=== PATIENT | male | born 1990 | race African-American/Black ===

== ENCOUNTER 2016-05-15 21:24 | Emergency (ER) | payer SELFPAY ==
[~2016-05-15] VITALS: Ht 175.3 cm; Wt 74.8 kg
[2016-05-15] MEDS ORDERED: AMOX500T2 PO (22:57)
--- NOTE | 2016-05-15 22:57 | ED General ---
General Chief Complaint: Oral/Throat Problems Stated Complaint: THROAT PAIN Nursing Triage Note: PT TO ED 7 W/ C/O SORE THROAT X2-3 DAYS Nursing Sepsis Screen: No Definite Risk Source of Information: Patient Exam Limitations: No Limitations History of Present Illness Time Seen by Provider: 21:44 Initial Comments This 25-year-old young man presents to the emergency room with severe sore throat and difficulty swallowing. He has been ill for 2-3 days. He has been using hehy-dtb-iinlzfx sore throat spray and ibuprofen without much benefit. He has not taken any ibuprofen today. Mild fever noted on assessment. Allergies and Home Medications Allergies Coded Allergies: No Known Drug Allergies (Unverified , 05/15/16) Home Medications Amoxicillin 500 Mg Tablet, 1,000 MG PO BID, #40 Prescribed by: KAYLIN JONES on 05/15/16 0833 Constitutional: see HPI EENTM: see HPI Respiratory: no symptoms reported Cardiovascular: no symptoms reported Gastrointestinal: no symptoms reported Genitourinary: no symptoms reported Musculoskeletal: no symptoms reported Skin: no symptoms reported Psychiatric/Neurological: No Symptoms Reported Hematologic/Lymphatic: No Symptoms Reported Past Xnznelz-Wbgbzr-Atwetm Hx Patient Social History Alcohol Use: Denies Use Recreational Drug Use: No Smoking Status: Never a Smoker Recent Foreign Travel: No Contact w/Someone Who Travel: No Recent Infectious Disease Expo: No Recent Hopitalizations: No Surgeries HX Surgeries: No Respiratory Hx Respiratory Disorders: No Cardiovascular Hx Cardiac Disorders: No Neurological Hx Neurological Disorders: No Genitourinary Hx Genitourinary Disorders: No Gastrointestinal Hx Gastrointestinal Disorders: No Musculoskeletal Hx Musculoskeletal Disorders: No Endocrine Hx Endocrine Disorders: No HEENT HX ENT Disorders: No Cancer Hx Cancer: No Psychosocial Hx Psychiatric Problems: No Integumentary HX Skin/Integumentary Disorder: No Blood Transfusions Hx Blood Disorders: No Physical Exam Vital Signs Vital Sign - Last 12Hours 05/15/16 21:53 Temp 100.4 Pulse 100 Resp 20 B/P (MAP) 120/79 Pulse Ox 99 O2 Delivery Room Air Capillary Refill : Less Than 3 Seconds General Appearance: No Apparent Distress, WD/WN HEENT: PERRL/EOMI, TMs Normal, Pharyngeal Erythema Neck: Normal Inspection Respiratory: Lungs Clear, Normal Breath Sounds, No Accessory Muscle Use, No Respiratory Distress Cardiovascular: Regular Rate, Rhythm, No Edema, No Murmur Gastrointestinal: Normal Bowel Sounds, Non Tender, Soft Extremity: Normal Inspection, No Pedal Edema Neurologic/Psychiatric: Alert, Oriented x3, No Motor/Sensory Deficits, Normal Mood/Affect, manager architecture II-XII Norm as Tested Skin: Normal Color, Warm/Dry Progress/Results/Core Measures Results/Orders Lab Results Micro Results My Orders Vital Signs/I&O Blood Pressure Mean: 93 Progress Note : Progress Note Rapid strep and influenza screens were negative. However, antibiotics were initiated based on suspicion of exam. Viscous lidocaine was given to soothe his throat. Departure Impression Impression: Primary Impression: Pharyngitis Qualified Codes: J02.9 - Acute pharyngitis, unspecified Disposition: HOME, SELF-CARE Condition: Improved Departure-Patient Inst. Decision time for Depature: 22:30 Referrals: NO,LOCAL PHYSICIAN (PCP) Primary Care Physician Patient Instructions: Viral Pharyngitis (DC) Add. Discharge Instructions: You may take ibuprofen up to 600 mg every 6 hours as needed for pain or fever. Add Tylenol (acetaminophen) up to 1000 mg every 6 hours as needed for additional fever or pain relief. Stay well-hydrated. You may gargle and swallow the remaining lidocaine as needed for sore throat. Eat and drink carefully after doing so as this medication may numb your mouth and throat. Continue antibiotics until the results of your throat culture are known. They should be available in about 48 hours. You may contact the ER or your primary care provider for results. Return to care if symptoms worsen. All discharge instructions reviewed with patient and/or family. Voiced understanding. Scripts Amoxicillin (Amoxicillin) 500 Mg Tablet 1000 MG PO BID, #40 TAB Prov: KAYLIN JIN MD 05/15/16 KAYLIN JIN MD May 15, 2016 22:57
[2016-05-15] MEDS ORDERED: LIDOCAINE 2% VISCOUS 15 ML UDC PO ONE (23:00)
[2016-05-15] MEDS ORDERED: AMOXICILLIN 500 MG (POLYMOX) CAP PO ONE (23:00)
[2016-05-15 23:02] VITALS: BP 0/0
== END 2016-05-15 23:02 | disposition home or self-care (01) ==
LOC: ER 21:29
DX: J02.9 Acute pharyngitis, unspecified (principal)
CPT/HCPCS: 87430; 87804; 99282